=== PATIENT | male | born 1985 | race Caucasian/White ===

== ENCOUNTER 2020-11-23 13:35 | Emergency (ER) | payer OTHER ==
[~2020-11-23] VITALS: Ht 182.9 cm; Wt 88.9 kg
[2020-11-23 13:49] VITALS: BP_SYST 144
[2020-11-23 15:06] VITALS: BP_SYST 144
== END 2020-11-23 15:07 | disposition home or self-care (01) ==
LOC: SED 13:35
DX: S53.402A Unspecified sprain of left elbow, initial encounter (principal); W01.10XA Fall on same level from slipping, tripping and stumbling with subsequent striking against unspecified object, initial encounter; Y93.89 Activity, other specified; Y92.89 Other specified places as the place of occurrence of the external cause; Y99.8 Other external cause status
CPT/HCPCS: 99283

== ENCOUNTER 2023-12-07 18:42 | Emergency (ER) | payer OTHER ==
[~2023-12-07] VITALS: Ht 182.9 cm; Wt 83.9 kg
[2023-12-07 18:53] VITALS: BP_SYST 98; PULSE 90; RESP 18; TEMP 99.2; O2SAT 95
[2023-12-07] MEDS: KETOROLAC TROMETHAMINE 30 MG VIAL IM ONE (20:01)
[2023-12-07] MEDS: IBUPROFEN 800 MG TABLET PO ONE (20:03)
[2023-12-07] MEDS ORDERED: HYDR-3927 PO (21:12)
[2023-12-07] MEDS ORDERED: LIDO1ADH22 TP (21:12)
[2023-12-07] MEDS ORDERED: IBUP-1971 PO (21:12)
[2023-12-07] MEDS: HYDROcodone/ACETAMIN 10-325 MG TAB PO ONE (21:40)
[2023-12-07 21:56] VITALS: BP_SYST 116; PULSE 76; RESP 18; TEMP 99.2; O2SAT 96
== END 2023-12-07 21:56 | disposition home or self-care (01) ==
LOC: SED 18:42
DX: S62.112A Displaced fracture of triquetrum [cuneiform] bone, left wrist, initial encounter for closed fracture (principal); S39.011A Strain of muscle, fascia and tendon of abdomen, initial encounter; S20.211A Contusion of right front wall of thorax, initial encounter; W01.0XXA Fall on same level from slipping, tripping and stumbling without subsequent striking against object, initial encounter; Y93.89 Activity, other specified; Y92.89 Other specified places as the place of occurrence of the external cause; Y99.8 Other external cause status
CPT/HCPCS: 99284; 71045; 71100; 73110; 73502; 29125; 72170; 96372; J1885